=== PATIENT | female | born 1950 | race Two or more races ===

== ENCOUNTER 2019-08-21 16:07 | Outpatient (CLI) | payer OTHER | END 2019-08-21 16:42 | disposition home or self-care (01) | LOC: RAD 16:07 | DX: M17.0 Bilateral primary osteoarthritis of knee (principal) ==

== ENCOUNTER 2020-09-01 10:45 | Outpatient (CLI) | payer OTHER | END 2020-09-01 10:53 | disposition home or self-care (01) | LOC: NUCLEAR 10:45 | PROVIDERS: ATTEND Physical Medicine & Rehabilitation Sports Medicine | DX: M81.0 Age-related osteoporosis without current pathological fracture (principal) ==

== ENCOUNTER 2021-04-12 11:25 | Inpatient (IN) | payer OTHER ==
[~2021-04-12] VITALS: Ht 162.6 cm; Wt 85.7 kg
[2021-04-12] MEDS ORDERED: OXYBUTYNIN CHLO10 MG PO (11:32)
[2021-04-12] MEDS ORDERED: NOXIFOL-D32500 UNIT PO (11:33)
--- NOTE | 2021-04-12 11:33 | NUR ---
SE RECIBE PACIENTE ALERTA, ORIENTADA X 3, LLEGA EN AMBULANCIA REFIERE TENER DOLOR EN AREA DE CADERA DERECHA, POR CAIDAS EN EL AMBER DE MARCIA. SE ESTIMAN S/V, SE REPORTAN SE PRESENTA A SE UBICA EN EUGENIE # 12 CON BARRANDAS ELEVADAS A NIVEL MAS BAJO
--- NOTE | 2021-04-12 11:51 | NUR ---
SE ORIENTA PTE SOBRE EL TRATAMIENTO ORDENADO POR LA DRA CARDOSO PTE ALERTA Y CONCIENTE POR 3 SE REALIZAN MUESTRAS DE LABORATORIO
--- NOTE | 2021-04-12 12:00 | NUR ---
LE REALIZAN PROSEDIMENTO DE COLOCARLE LAST PESA DE 5LB R.
[2021-04-15] MEDS ORDERED: ELIQUIS2.5 MG PO (08:06)
[2021-04-15] MEDS ORDERED: CIPRO500 MG PO (08:06)
[2021-04-15] MEDS ORDERED: PERCOCET 5-3251 EACH PO (08:06)
== END 2021-04-15 17:23 | DRG 481 ==
LOC: ER 11:25 → SURH 15:29
PROVIDERS: ADMIT Orthopaedic Surgery; ATTEND Orthopaedic Surgery
PROC: 0QS606Z Reposition Right Upper Femur with Intramedullary Internal Fixation Device, Open Approach (ICD-10-PCS; principal; 2021-04-13 15:45)
PROC: 30233N1 Transfusion of Nonautologous Red Blood Cells into Peripheral Vein, Percutaneous Approach (ICD-10-PCS; 2021-04-15)
DX: S72.141A Displaced intertrochanteric fracture of right femur, initial encounter for closed fracture (principal); D62 Acute posthemorrhagic anemia; W01.0XXA Fall on same level from slipping, tripping and stumbling without subsequent striking against object, initial encounter; M81.0 Age-related osteoporosis without current pathological fracture

== ENCOUNTER 2023-08-29 11:37 | Outpatient (CLI) | payer OTHER ==
[~2023-08-29 11:37] MED LIST: CIPRO500 MG PO; ELIQUIS2.5 MG PO; NOXIFOL-D32500 UNIT PO; OXYBUTYNIN CHLO10 MG PO; PERCOCET 5-3251 EACH PO
== END 2023-08-29 11:40 | disposition home or self-care (01) ==
LOC: SONOGRAMA 11:37
PROVIDERS: ATTEND Pathology Anatomic Pathology & Clinical Pathology
DX: D34 Benign neoplasm of thyroid gland (principal)

== ENCOUNTER 2024-08-31 15:26 | Emergency (ER) | payer OTHER ==
[~2024-08-31] VITALS: Ht 160 cm; Wt 62.6 kg
[2024-08-31] MEDS ORDERED: KEPPRA500 MG (15:35)
[2024-08-31] MEDS ORDERED: DOXYCYCLINE HYCLATE 100MG IV ONE (16:45)
[2024-08-31] MEDS ORDERED: DIPHENHYDRAMINE HCL 50 MG/ML VIAL 1ML IV ONE (16:45)
[2024-08-31] MEDS ORDERED: 0.9 % SODIUM CHLORIDE 1,000 ML IV SCH (16:45)
[2024-08-31 17:39] LABS: HEMATOCRIT 35.7 % (36.0-45.00); MEAN CELL VOLUME 89.7 fL (80.00-100.00); MEAN CORPUSCULAR HEMOGLOBIN 30.2 pg (27.00-32.0); MEAN CORPUSCULAR HGB CONC 33.7 g/dl (32.0-36.0); PLATELET COUNT 203 K/uL (150-450); RED BLOOD COUNT 3.98 M/uL (4.00-6.00); RED CELL DISTRIBUTION WIDTH 13.4 % (11.5-14.5)
[2024-08-31 17:52] LABS: ERYTHROCYTE SEDIMENTATION RATE 23 mm/hr
[2024-08-31 17:59] LABS: ALBUMIN 3.4 gm/dL (3.4-5.0); ALKALINE PHOSPHATASE 62 U/L (50-136); ALT/SGPT 7 U/L (12-78); ANION GAP 8 (10.0-20.0); AST/SGOT 11 U/L (15-37); BILIRUBIN TOTAL 0.28 mg/dL (0.3-1.2); BLOOD UREA NITROGEN 15 mg/dL (7-18); BUN CREA RATIO 23 (7.0-25.0); CALCIUM 8.7 mg/dL (8.5-10.1); CARBON DIOXIDE 29 mEq/L (21-32); CHLORIDE 109 mmol/L (98-107); CREATININE SERUM 0.66 mg/dL (0.55-1.02); GFR 87.31; GLOBULINA 3.7 G/DL (2.4-3.5); GLUCOSE FASTING 93 mg/dL (65-100); OSMOLALITY SERUM 284 MOSM/KG (275-295); POTASSIUM 3.87 mEq/L (3.5-5.1); SODIUM 142 mmol/L (136-145); TOTAL PROTEIN 7.1 gm/dL (6.4-8.2)
[2024-08-31 18:04] LABS: C-REACTIVE PROTEIN < 0.29 MG/DL (0.00-0.29)
[2024-08-31] MEDS ORDERED: MONDOXYNE NL100 MG PO (18:59)
[2024-08-31] MEDS ORDERED: BENADRYL25 MG PO (19:00)
== END 2024-08-31 21:35 | disposition home or self-care (01) ==
LOC: ER 15:26
PROVIDERS: General Practice
DX: H01.006 Unspecified blepharitis left eye, unspecified eyelid (principal); H01.003 Unspecified blepharitis right eye, unspecified eyelid; L71.8 Other rosacea; Z91.011 Allergy to milk products; Z88.0 Allergy status to penicillin; G40.802 Other epilepsy, not intractable, without status epilepticus
CPT/HCPCS: 36415; 96365; 96366; 99282; J1200; J3490; J7030